=== PATIENT | male | born 1935 | race Caucasian/White ===

== ENCOUNTER 2021-01-05 04:38 | Emergency (ER) | payer MEDICARE, OTHER ==
[2021-01-05 05:13] LABS: #Neutrophils 10.6 10x3/uL (1.5-8.4); %Basophils 0.3 % (0.0-2.0); %Eosinophils 0.3 % (0.0-6.0); %Lymphocytes 10.2 % (18.0-47.0); %Monocytes 7.3 % (0.0-10.0); %Neutrophils 81.7 % (40.0-75.0); Hemoglobin 12.2 g/dL (13.5-17.5); Mean Corpuscular Hemoglobin 32.4 pg (27.0-33.0); Mean Corpuscular Volume 95.5 fl (81.2-95.1); Mean Platelet Volume 9.1 fl (7.4-10.4); Platelet Count 367 10x3/uL (150-450); RBC Distribution Width 14.7 % (11.5-14.5); Red Blood Cell (RBC) Count 3.76 10x6/uL (4.32-5.72)
[2021-01-05 05:26] LABS: ALT (SGPT) 64 U/L (8-55); AST (SGOT) 58 U/L (5-34); Albumin 3.3 g/dL (3.4-4.8); Alkaline Phosphatase 616 U/L (40-110); Anion Gap 14 mmol/L (10-20); BUN (Urea Nitrogen) 13 mg/dL (8.4-25.7); Bilirubin, Total 0.6 mg/dL (0.2-1.2); Calc. Creatinine Clearance 0 mL/min (70-130); Calcium 9.4 mg/dL (7.8-10.44); Carbon Dioxide 27 mmol/L (23-31); Chloride 98 mmol/L (98-107); Globulin 3.9 g/dL (2.4-3.5); Glucose 133 mg/dL (83-110); Potassium 3.9 mmol/L (3.5-5.1); Protein, Total 7.2 g/dL (5.8-8.1); Sodium 135 mmol/L (136-145)
[2021-01-05 05:49] LABS: CKMB 2.2 ng/mL (0-6.6)
[2021-01-05 06:25] LABS: SARS-CoV-2 NAA Rapid Test Not Detected (NotDetected)
[2021-01-05] MEDS ORDERED: Dexamethasone 10 MG/ML VIAL ONE (07:34)
[2021-01-05 08:06] LABS: Bilirubin Neg (Negative); Blood, Urine Negative (Negative); Clarity Clear (Clear); Glucose, Urine (Dipstick) Normal (Negative); Ketone, Urine Negative (Negative); Leukocyte 25 (Negative); Nitrite Negative (Negative); Protein, Urine (Dipstick) 30 mg/dl (Neg-Trace); Urobilinogen Normal mg/dL (Less than 2)
[2021-01-05 08:14] LABS: RBC/HPF 0-3 HPF (0-3); Squamous Epithelial 0-3 HPF (0-3); WBC/HPF 0-3 HPF (0-3)
[2021-01-05 08:15] LABS: Bacteria/HPF Rare-Few HPF (None Seen)
== END 2021-01-05 08:48 | disposition short-term general hospital (02) ==
LOC: CSHERS 04:38
DX: G93.89 Other specified disorders of brain (principal); G91.9 Hydrocephalus, unspecified; R29.700 NIHSS score 0; K21.9 Gastro-esophageal reflux disease without esophagitis; E78.5 Hyperlipidemia, unspecified; E78.00 Pure hypercholesterolemia, unspecified; I10 Essential (primary) hypertension; J44.9 Chronic obstructive pulmonary disease, unspecified; F17.210 Nicotine dependence, cigarettes, uncomplicated; Z20.822 Contact with and (suspected) exposure to COVID-19; Z79.899 Other long term (current) drug therapy
CPT/HCPCS: 70450; 80053; 81003; 81015; 82553; 84484; 85025; 93005; J1100; U0002